=== PATIENT | female | born 1960 | race Caucasian/White ===

== ENCOUNTER 2016-09-15 10:09 | Inpatient (IN) | payer OTHER ==
[~2016-09-15] VITALS: Ht 157.5 cm; Wt 64.0 kg
[~2016-09-15 10:09] MED LIST: ASPI-535 PO; CARVEDILOL PO; METFORMIN PO; OMEPRAZOLE PO; PREM3 PO
[2016-09-15] MEDS ORDERED: morphine 2 MG INJ IV STA (11:34)
[2016-09-15] MEDS ORDERED: SOD CHLORIDE 0.9% 1,000 ML IV STA (11:34)
[2016-09-15] MEDS ORDERED: ONDANSETRON 4 MG INJ IV STA (11:34)
[2016-09-15] MEDS ORDERED: SOD CHLORIDE 0.9% 1,000 ML IV ONE ×2 (12:00→14:30)
[2016-09-15 12:05] LABS: ADD SCAN DIFF NO
[2016-09-15 12:07] LABS: BASOPHILS % 0.3 % (0.0-2.0); EOSINOPHILS # 0.1 10^3/ul (0.0-0.5); HEMATOCRIT 38.8 % (37.0-47.0); HEMOGLOBIN 13.2 g/dl (12.0-16.0); LYMPHOCYTES # 1.1 10^3/ul (0.8-2.9); LYMPHOCYTES % 12.7 % (15.0-51.0); MEAN CORPUSCULAR HEMOGLOBIN 28.1 pg (29.0-33.0); MEAN CORPUSCULAR VOLUME 82.6 fl (82.0-101.0); MEAN PLATELET VOLUME 10.2 fl (7.4-10.4); NEUTROPHIL # 6.7 10^3/ul (1.6-7.5); NEUTROPHILS % 74.6 % (39.0-77.0); PLATELET COUNT 315 10^3/UL (140-415); RED CELL DISTRIBUTION WIDTH 14.3 % (11.5-14.5); WHITE BLOOD COUNT 8.9 10^3/ul (4.8-10.8)
[2016-09-15 12:16] LABS: ADD UMIC YES; URINE BILIRUBIN (Dip) 2+ (NEGATIVE); URINE BLOOD (Dip) NEGATIVE (NEGATIVE); URINE COLOR DK. YELLOW (YELLOW); URINE GLUCOSE (Dip) NEGATIVE (NEGATIVE); URINE KETONES (Dip) NEGATIVE (NEGATIVE); URINE LEUKOCYTE ESTERASE (Dip) NEGATIVE (NEGATIVE); URINE NITRITE (Dip) NEGATIVE (NEGATIVE); URINE TOTAL PROTEIN (Dip) 1+ (NEGATIVE); URINE UROBILINOGEN (Dip) 0.2 E.U./dL (0.1-1.0)
[2016-09-15 12:23] LABS: ICTOTEST NEGATIVE (NEGATIVE)
[2016-09-15 12:24] LABS: BACTERIA,URINE MANY
[2016-09-15 12:27] LABS: ALBUMIN 4.8 g/dl (3.3-4.9); ALBUMIN/GLOBULIN RATIO 1.84; BILIRUBIN,INDIRECT 0.3 mg/dl (0-1.1); BILIRUBIN,TOTAL 0.3 mg/dl (0.2-1.3); CALCIUM 8.7 mg/dl (8.4-10.2); CREATININE 1.75 mg/dl (0.44-1.00); POTASSIUM 3.4 mmol/L (3.5-5.1); TOTAL PROTEIN 7.4 g/dl (6.1-8.1)
[2016-09-15] MEDS ORDERED: ONDANSETRON 4 MG INJ IV PRN (14:30)
[2016-09-15] MEDS ORDERED: CARV12.579 PO (14:30)
[2016-09-15] MEDS ORDERED: ACETAMINOPHEN 325 MG TAB PO PRN ×2 (14:30→16:00)
[2016-09-15] MEDS ORDERED: PRAV40TA76 PO (14:30)
[2016-09-15] MEDS ORDERED: EZET10TA3 PO (14:34)
[2016-09-15] MEDS ORDERED: METF500T3 PO (14:35)
[2016-09-15] MEDS ORDERED: OMEP20CA16 PO (14:36)
[2016-09-15] MEDS ORDERED: LOSA100T7 PO (14:36)
--- NOTE | 2016-09-15 15:45 | HP ---
Date/Time of Note Date/Time of Note DATE: 09/15/16 TIME: 15:38 Assessment/Plan VTE Prophylaxis VTE Prophylaxis Intervention: heparin, SCD's Assessment/Plan Assessment/Plan 56 yo F with pmhx HTN, DM, HL admitted for abd pain, diarrhea x 3 days and resultant AUDREY 2/2 decreased PO intake. Suspect etio of GI upset is viral gastro given sick contact at home #abd pain/diarrhea: GI tract rest, IVFs #AUDREY: suspect 2/2 decreased PO intake urine lytes/FENA hold ARB and metformin RON in AM if Cr not improved #DM2: accuchecks and SSI; hold metformin #transaminitis: suspect 2/2 viral syndrome. If not improved by AM following hydration, consider liver US and hepatitis serologies #HL: cont statin #HTN: cont bb, hold ARB #FEN: CLD, ADAT #prophx: SCDs and SQH dispo pending resolution of AUDREY and improvement of PO tolerence HPI/ROS Admit Date/Time Admit Date/Time Hx of Present Illness 56 yo F presents with 3 days of abd cramping, diarrhea. Reports her mother who lives with her has been having the same symptoms. Has been unable to tolerate much PO over this interval. Does not freely endorse blood stool, dark stool, CP , SOB ROS 10pROS neg except as per HPI PMH/Family/Social Past Medical History DM2, HTN, HL Past Surgical History Past Surgical Hx: noncontributory Family History Significant Family History: no pertinent family hx Social History lives in the community Smoking Status: Never smoker Exam/Review of Systems Vital Signs Vitals Vital Signs Date Time Temp Pulse Resp B/P Pulse Ox O2 Delivery O2 Flow Rate FiO2 09/15/16 13:42 97.9 79 20 92/52 98 Room Air Exam Exam nad, pleasant EOMI MMM rrr no mrg lungs clear abd soft, no rebound or guarding. pt repots mild discomfort in all quadrants no le edema no rashes responds to questions appropriately moves exts freely Labs Result Diagram: 09/15/16 1145 09/15/16 1145 NICO SILVA MD Sep 15, 2016 15:45
[2016-09-15] MEDS ORDERED: GLUCOSE GEL 15 GRAM TUBE BUCCAL PRN (16:00)
[2016-09-15] MEDS ORDERED: MAGNESIUM HYDROXIDE 30ML CUP PO PRN (16:00)
[2016-09-15] MEDS ORDERED: DEXTROSE 50% 50 ML SYRINGE IV PRN ×2 (16:00)
[2016-09-15] MEDS ORDERED: BISACODYL (EC) 5 MG TAB PO PRN (16:00)
[2016-09-15] MEDS ORDERED: GLUCOSE GEL 15 GRAM TUBE PO PRN ×2 (16:00)
[2016-09-15] MEDS ORDERED: DOCUSATE SODIUM 100 MG CAP PO PRN (16:00)
[2016-09-15] MEDS ORDERED: Discontinue Glyburide, Glipizide, and/or Glimepiride prior to starting Insulin XX ONE (16:00)
[2016-09-15] MEDS ORDERED: HYPOGLYCEMIA PROTOCOL when Glucose is <70 mg/dL or symptomatic <90 mg/dL. XX ONE (16:00)
[2016-09-15] MEDS ORDERED: NACL 0.9% 3 ML SYG IV SCH (16:00)
[2016-09-15] MEDS ORDERED: BISACODYL 10 MG SUPP PR PRN (16:00)
[2016-09-15] MEDS ORDERED: GLUCAGON 1 MG INJ IM PRN (16:00)
[2016-09-15] MEDS ORDERED: HYDROCODONE/APAP (5/325) TAB PO PRN (16:00)
[2016-09-15] MEDS ORDERED: POTASSIUM CHLORIDE (SR) 20 MEQ TAB PO STA (16:03)
--- NOTE | 2016-09-15 16:05 | ERA ---
ER Documentation Chief Complaint Date/Time DATE: 09/15/16 TIME: 15:59 Chief Complaint AP N/V/DX 4 DAYS HPI This 56-year-old female presents the emergency room for feeling tired, generalized weakness after having nausea vomiting and diarrhea for 4 days. She has had chills but no fevers. She has generalized crampy abdominal pain. She does have a history of diabetes as well. ROS All systems reviewed and are negative except as per history of present illness. Medications Home Meds Reported Medications Omeprazole* (Omeprazole*) 20 Mg Capsule.dr, 20 MG PO DAILY, #30 CAP 09/15/16 Ezetimibe* (Zetia*) 10 Mg Tablet, 10 MG PO HS, TAB 09/15/16 Pravastatin Sodium* (Pravastatin Sodium*) 40 Mg Tablet, 40 MG PO HS, TAB 09/15/16 Carvedilol* (Carvedilol*) 12.5 Mg Tablet, 12.5 MG PO BID, #60 TAB 09/15/16 Discontinued Reported Medications Losartan Potassium* (Losartan Potassium*) 100 Mg Tablet, 100 MG PO DAILY, TAB 09/15/16 Metformin Hcl* (Metformin Hcl* ER) 500 Mg Tab.sr.24h, 500 MG PO DAILY, #30 TAB 09/15/16 Aspirin Ec (Aspir 81) 81 Mg Tablet.dr, 81 MG PO DAILY, #30 TAB 07/25/15 [Carvedilol] No Conflict Check, PO 07/25/15 [Metformin] No Conflict Check, PO 07/25/15 [Omeprazole] No Conflict Check, PO 07/25/15 Discontinued Scripts Estrogens Conjugated* (Premarin*) 0.3 Mg Tablet, 0.3 MG PO DAILY for 5 Days, #5 TAB 0 Refills Prov:ELOY ORTEGA PA-C 08/28/15 Allergies Allergies: Coded Allergies: Penicillins (Verified Allergy, Unknown, 09/15/16) PMhx/Soc History of Surgery: No (UTERINE BIOPSIES X2, LAP MARIA, TONSILLECTOMY ) Anesthesia Reaction: No Hx Neurological Disorder: No Hx Respiratory Disorders: No Hx Cardiac Disorders: Yes (HTN, HIGH CHOL, HEART MURMER) Hx Psychiatric Problems: No Hx Miscellaneous Medical Probl: Yes (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 Head: Atraumatic Eyes: Normal Conjunctiva ENT: Normal External Ears, Nose and Mouth. Neck: Full range of motion..~ No meningismus. Resp: Clear to auscultation bilaterally Cardio: Regular rate and rhythm, no murmurs Abd: Soft, mild generalized abdominal pain without guarding or rebound, non distended. Normal bowel sounds Skin: No petechiae or rashes Back: No midline or flank tenderness Ext: No cyanosis, or edema Neur: Awake and alert and oriented 3, no focal deficits Psych: Normal Mood and Affect Result Diagram: 09/15/16 1145 09/15/16 1145 Results 24 hrs Laboratory Tests Test 09/15/16 11:45 White Blood Count 8.910^3/ul Red Blood Count 4.7010^6/ul Hemoglobin 13.2g/dl Hematocrit 38.8% Mean Corpuscular Volume 82.6fl Mean Corpuscular Hemoglobin 28.1pg Mean Corpuscular Hemoglobin Concent 34.0g/dl Red Cell Distribution Width 14.3% Platelet Count 19798^3/UL Mean Platelet Volume 10.2fl Neutrophils % 74.6% Lymphocytes % 12.7% Monocytes % 11.0% Eosinophils % 1.0% Basophils % 0.3% Nucleated Red Blood Cells % 0.0/100WBC Neutrophils # 6.710^3/ul Lymphocytes # 1.110^3/ul Monocytes # 1.010^3/ul Eosinophils # 0.110^3/ul Basophils # 0.010^3/ul Nucleated Red Blood Cells # 0.010^3/ul Urine Color DK. YELLOW Urine Clarity CLEAR Urine pH 5.5 Urine Specific [place] >=1.030 Urine Ketones NEGATIVE Urine Nitrite NEGATIVE Urine Bilirubin 2+ Urine Ictotest NEGATIVE Urine Urobilinogen 0.2 E.U./dL Urine Leukocyte Esterase NEGATIVE Urine Microscopic RBC 5-10/HPF Urine Microscopic WBC 10-25/HPF Urine Epithelial Cells MODERATE Urine Bacteria MANY Urine Coarse Granular Casts MODERATE Urine Hemoglobin NEGATIVE Urine Glucose NEGATIVE% Urine Total Protein 1+ Sodium Level 141mmol/L Potassium Level 3.4mmol/L Chloride Level 105mmol/L Carbon Dioxide Level 24mmol/L Anion Gap 15 Blood Urea Nitrogen 29mg/dl Creatinine 1.75mg/dl Glucose Level 111mg/dl Lactic Acid Level 1.0mmol/L Calcium Level 8.7mg/dl Total Bilirubin 0.3mg/dl Direct Bilirubin 0.00mg/dl Indirect Bilirubin 0.3mg/dl Aspartate Amino Transf (AST/SGOT) 97IU/L Alanine Aminotransferase (ALT/SGPT) 131IU/L Alkaline Phosphatase 133IU/L Total Protein 7.4g/dl Albumin 4.8g/dl Globulin 2.60g/dl Albumin/Globulin Ratio 1.84 Lipase 133U/L Current Medications Medications (Trade) Dose Ordered Sig/Francisco Javier Route PRN Reason Start Time Stop Time Status Last Admin Dose Admin Sodium Chloride (NS) 1,000 ml @ 1,000 mls/hr Q1H STAT IV 09/15/16 11:34 09/15/16 12:33 DC 09/15/16 11:47 Morphine Sulfate (morphine) 2 mg ONCE STAT IV 09/15/16 11:34 09/15/16 11:38 DC 09/15/16 11:47 Ondansetron HCl 4 mg 4 mg ONCE STAT IV 09/15/16 11:34 09/15/16 11:38 DC 09/15/16 11:47 Sodium Chloride (NS) 1,000 ml @ 1,000 mls/hr Q1H ONCE IV 09/15/16 12:00 09/15/16 12:59 DC 09/15/16 12:27 Ondansetron HCl (Zofran Inj) 4 mg BRIDGE ORDER PRN IV NAUSEA AND/OR VOMITING 09/15/16 14:30 09/16/16 14:29 Acetaminophen 650 mg 650 mg ER BRIDGE PRN PO MILD PAIN/FEVER 09/15/16 14:30 09/16/16 14:29 Sodium Chloride (NS) 1,000 ml @ 1,000 mls/hr Q1H ONCE IV 09/15/16 14:30 09/15/16 15:29 DC 09/15/16 15:07 Carvedilol (Coreg) 12.5 mg BID PO 09/15/16 21:00 EZETIMIBE (Zetia) 10 mg HS PO 09/15/16 21:00 Pantoprazole (Protonix Tab) 40 mg DAILY@06 PO 09/16/16 06:00 Atorvastatin Calcium 10 mg 10 mg DAILY@21 PO 09/15/16 21:00 Sodium Chloride (NS) 1,000 ml @ 125 mls/hr Q8H IV 09/15/16 15:40 IV Flush (NS 3 ml) 3 ml PER PROTOCOL IV 09/15/16 16:00 Acetaminophen (Tylenol Tab) 650 mg Q6H PRN PO PAIN LEVEL 1-3 OR FEVER 09/15/16 16:00 Acetaminophen/ Hydrocodone Bitart ([place] (5/325)) 1 tab Q6H PRN PO MODERATE PAIN LEVEL 4-6 09/15/16 16:00 Docusate Sodium (Colace) 100 mg Q12H PRN PO CONSTIPATION 09/15/16 16:00 Magnesium Hydroxide (Milk Of Mag) 30 ml DAILY PRN PO CONSTIPATION 09/15/16 16:00 Bisacodyl (Dulcolax) 5 mg DAILY PRN PO CONSTIPATION 09/15/16 16:00 Bisacodyl (Dulcolax Supp) 10 mg DAILY PRN IN CONSTIPATION 09/15/16 16:00 Heparin Sodium (Porcine) (Heparin (5000 Units/0.5 ml)) 5,000 unit Q8 SC 09/15/16 22:00 Insulin Aspart (Novolog Insulin Pen) NOVOLOG *MILD* ALGORITHM WITH MEALS BEDTIME SC 09/15/16 18:00 UNV Miscellaneous Information (* Miscellaneous Pharmacy Order) HYPOGLYCEMIA PROTOCOL w... ONCE ONCE XX 09/15/16 16:00 09/15/16 16:01 Miscellaneous Information (* Miscellaneous Pharmacy Order) Discontinue Glyburide, Glipizide,... ONCE ONCE XX 09/15/16 16:00 09/15/16 16:01 Miscellaneous Information (* Miscellaneous Pharmacy Order) Discontinue all previ... ONCE ONCE XX 09/15/16 16:00 09/15/16 16:01 Miscellaneous Information 1 ea NOTE XX 09/15/16 16:00 Glucose (Glutose) 15 gm Q15M PRN PO DECREASED GLUCOSE 6/3/17 16:00 Glucose (Glutose) 22.5 gm Q15M PRN PO DECREASED GLUCOSE 09/15/16 16:00 Dextrose (D50w Syringe) 25 ml Q15M PRN IV DECREASED GLUCOSE 617 16:00 Dextrose (D50w Syringe) 50 ml Q15M PRN IV DECREASED GLUCOSE 6 16:00 Glucagon (Glucagen) 1 mg Q15M PRN IM DECREASED GLUCOSE 6 16:00 Glucose (Glutose) 15 gm Q15M PRN BUCCAL DECREASED GLUCOSE 6 16:00 Procedures/MDM 56-year-old female with dehydration, hypotension, acute kidney injury after what is likely a viral gastroenteritis for the last 4 days. She was hydrated with 2 L of normal saline in the emergency room and still remained somewhat hypotensive. EKG is nonischemic and I doubt a cardiac origin of this is the patient is volume depleted secondary to her vomiting and diarrhea. Is given morphine which helped her pain as well as Zofran which resolved her nausea. She still feels weak and as she is diabetic I believe that her multiple conditions requiring continuing fluid resuscitation warrant admission. Pain pattern is consistent with gastroenteritis and I do not believe the patient would benefit from a CAT scan at this time spoke with Dr. Ivy who will be admitting. EKG interpretation: Normal sinus rhythm rate of 67, normal axis, normal intervals, no ST or T-wave changes concerning for acute ischemia. Nonspecific ST-T wave abnormality monitor and storage bin tender interpretation: Normal sinus rhythm without arrhythmia Departure Diagnosis: Primary Impression: Gastroenteritis Additional Impressions: Dehydration Hypotension Acute kidney injury Condition: Serious AMAIRANILORENAMISGUNNAR BOYD Sep 15, 2016 16:05
[2016-09-15] MEDS ORDERED: DIPHENOXYLATE/ATROPINE TAB PO ONE (16:30)
[2016-09-15] MEDS ORDERED: morphine 2 MG INJ IV ONE (16:30)
[2016-09-15] MEDS: INSULIN ASPART [NOVOLOG] 3 ML PEN SC SCH ×2 (18:00→21:00)
[2016-09-15] MEDS: SOD CHLORIDE 0.9% 1,000 ML IV SCH ×2 (18:29→23:30)
[2016-09-15] MEDS ORDERED: ATORVASTATIN 10 MG TAB PO SCH (21:00)
[2016-09-15] MEDS ORDERED: EZETIMIBE 10 MG TAB PO SCH (21:00)
[2016-09-15 21:14] VITALS: Ht 157.5 cm; Wt 64.0 kg
[2016-09-15 21:18] VITALS: BP 134/77; PULSE 83; RESP 18
[2016-09-15 21:29] VITALS: TEMP 98.2
[2016-09-15] MEDS: HEPARIN 5,000 UNIT/0.5 ML VIAL SC SCH (21:55)
[2016-09-16] MEDS ORDERED: ACCUCHECK AT 2AM (Patients on SS coverage) XX SCH (02:00)
[2016-09-16] MEDS: HEPARIN 5,000 UNIT/0.5 ML VIAL SC SCH ×2 (05:58→14:00)
[2016-09-16] MEDS ORDERED: PANTOPRAZOLE (EC) 40 MG TAB PO SCH (06:00)
[2016-09-16] MEDS: SOD CHLORIDE 0.9% 1,000 ML IV SCH (07:40)
[2016-09-16] MEDS: INSULIN ASPART [NOVOLOG] 3 ML PEN SC SCH ×2 (07:50→11:40)
[2016-09-16 08:19] VITALS: BP 111/62; RESP 17
--- NOTE | 2016-09-16 09:21 | PN ---
Date/Time of Note Date/Time of Note DATE: 09/16/16 TIME: 09:18 Assessment/Plan VTE Prophylaxis VTE Prophylaxis Intervention: other Lines/Catheters IV Catheter Type (from Rust): Peripheral IV Assessment/Plan Problems: (1) Acute kidney injury Status: Acute Comment: The blood draw for chemistry this morning was not done by the lab. Awaiting that to be drawn so that we can make decisions about her. I suspect this has resolved (2) Gastroenteritis Status: Acute Comment: Significantly improved. Probable later discharged today versus the morning. 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 Constitutional: no complaints (Denies fevers chills or sweats) Respiratory: no complaints (No wheezing no shortness of breath) Cardiovascular: no complaints (No chest pain) Gastrointestinal: other (Denies nausea or vomiting but she reports her stomach does feel little bit stirred up after eating) Genitourinary: no complaints Exam/Review of Systems Vital Signs Vitals Vital Signs Date Time Temp Pulse Resp B/P Pulse Ox O2 Delivery O2 Flow Rate FiO2 09/16/16 08:19 98.0 66 17 111/62 96 09/15/16 21:18 Room Air Intake and Output 09/15/16 09/15/16 09/16/16 15:00 23:00 07:00 Intake Total 2000 ml 1000 ml 2150 ml Output Total 200 ml 900 ml Balance 2000 ml 800 ml 1250 ml Exam Constitutional: alert, oriented Neck: non-tender, supple Respiratory: clear to auscultation, normal air movement Cardiovascular: nl pulses, regular rate and rhythm Gastrointestinal: bowel sounds (Bowel sounds are active and possibly hyperdynamic), nl liver, spleen, non-tender, soft Results Result Diagram: 09/15/16 1145 09/15/16 1145 Results 24 hrs Laboratory Tests Test 09/15/16 11:45 09/15/16 18:37 09/15/16 21:51 09/16/16 08:53 White Blood Count 8.9 Red Blood Count 4.70 Hemoglobin 13.2 Hematocrit 38.8 Mean Corpuscular Volume 82.6 Mean Corpuscular Hemoglobin 28.1 L Mean Corpuscular Hemoglobin Concent 34.0 Red Cell Distribution Width 14.3 Platelet Count 315 Mean Platelet Volume 10.2 Neutrophils % 74.6 Lymphocytes % 12.7 L Monocytes % 11.0 Eosinophils % 1.0 Basophils % 0.3 Nucleated Red Blood Cells % 0.0 Neutrophils # 6.7 Lymphocytes # 1.1 Monocytes # 1.0 H Eosinophils # 0.1 Basophils # 0.0 Nucleated Red Blood Cells # 0.0 Urine Color DK. YELLOW Urine Clarity CLEAR Urine pH 5.5 Urine Specific [place] >=1.030 H Urine Ketones NEGATIVE Urine Nitrite NEGATIVE Urine Bilirubin 2+ H Urine Ictotest NEGATIVE Urine Urobilinogen 0.2 E.U./dL Urine Leukocyte Esterase NEGATIVE Urine Microscopic RBC 5-10 Urine Microscopic WBC 10-25 Urine Epithelial Cells MODERATE Urine Bacteria MANY Urine Coarse Granular Casts MODERATE Urine Hemoglobin NEGATIVE Urine Random Creatinine > 605.00 H Urine Random Sodium 17 L Urine Glucose NEGATIVE Urine Total Protein 1+ H Sodium Level 141 Potassium Level 3.4 L Chloride Level 105 Carbon Dioxide Level 24 Anion Gap 15 Blood Urea Nitrogen 29 H Creatinine 1.75 H Glucose Level 111 Hemoglobin A1c 6.1 H Lactic Acid Level 1.0 Calcium Level 8.7 Total Bilirubin 0.3 Direct Bilirubin 0.00 Indirect Bilirubin 0.3 Aspartate Amino Transf (AST/SGOT) 97 H Alanine Aminotransferase (ALT/SGPT) 131 H Alkaline Phosphatase 133 H Total Protein 7.4 Albumin 4.8 Globulin 2.60 Albumin/Globulin Ratio 1.84 Lipase 133 Bedside Glucose 98 97 94 Medications Medications Current Medications Carvedilol (Coreg) 12.5 mg BID PO Last administered on 09/16/16 08:57; Admin Dose 12.5 MG; Start 09/15/16 at 21:00 EZETIMIBE (Zetia) 10 mg HS PO ; Start 09/15/16 at 21:00 Pantoprazole (Protonix Tab) 40 mg DAILY@06 PO Last administered on 09/16/16 05: 55; Admin Dose 40 MG; Start 09/16/16 at 06:00 Atorvastatin Calcium 10 mg 10 mg DAILY@21 PO Last administered on 09/15/16 21: 53; Admin Dose 10 MG; Start 09/15/16 at 21:00 Sodium Chloride (NS) 1,000 ml @ 125 mls/hr Q8H IV Last administered on 23:30; Admin Dose 125 MLS/HR; Start 09/15/16 at 15:40 Acetaminophen (Tylenol Tab) 650 mg Q6H PRN PO PAIN LEVEL 1-3 OR FEVER; Start at 16:00 Acetaminophen/ Hydrocodone Bitart ([place] (5/325)) 1 tab Q6H PRN PO MODERATE PAIN LEVEL 4-6; Start 09/15/16 at 16:00 Docusate Sodium (Colace) 100 mg Q12H PRN PO CONSTIPATION; Start 09/15/16 at 16: 00 Magnesium Hydroxide (Milk Of Mag) 30 ml DAILY PRN PO CONSTIPATION; Start at 16:00 Bisacodyl (Dulcolax) 5 mg DAILY PRN PO CONSTIPATION; Start 09/15/16 at 16:00 Bisacodyl (Dulcolax Supp) 10 mg DAILY PRN ND CONSTIPATION; Start 09/15/16 at 16: 00 Heparin Sodium (Porcine) (Heparin (5000 Units/0.5 ml)) 5,000 unit Q8 SC Last administered on 09/16/16 05:58; Admin Dose 5,000 UNIT; Start 09/15/16 at 22:00 Miscellaneous Information 1 ea NOTE XX ; Start 09/15/16 at 16:00 Glucose (Glutose) 15 gm Q15M PRN PO DECREASED GLUCOSE; Start 09/15/16 at 16:00 Glucose (Glutose) 22.5 gm Q15M PRN PO DECREASED GLUCOSE; Start 09/15/16 at 16:00 Dextrose (D50w Syringe) 25 ml Q15M PRN IV DECREASED GLUCOSE; Start 09/15/16 at 16:00 Dextrose (D50w Syringe) 50 ml Q15M PRN IV DECREASED GLUCOSE; Start 09/15/16 at 16:00 Glucagon (Glucagen) 1 mg Q15M PRN IM DECREASED GLUCOSE; Start 09/15/16 at 16:00 Glucose (Glutose) 15 gm Q15M PRN BUCCAL DECREASED GLUCOSE; Start 09/15/16 at 16: 00 Diagnostic Test (Pha) (Accu-Chek) 1 ea 02 XX ; Start 09/16/16 at 02:00 MIS PATEL MD Sep 16, 2016 09:21
[2016-09-16 10:20] LABS: ALBUMIN 3.7 g/dl (3.3-4.9); ALBUMIN/GLOBULIN RATIO 1.76; BILIRUBIN,INDIRECT 0.3 mg/dl (0-1.1); BILIRUBIN,TOTAL 0.3 mg/dl (0.2-1.3); CALCIUM 7.9 mg/dl (8.4-10.2); CREATININE 0.55 mg/dl (0.44-1.00); POTASSIUM 3.4 mmol/L (3.5-5.1); TOTAL PROTEIN 5.8 g/dl (6.1-8.1)
--- NOTE | 2016-09-16 12:09 | PDOCDIS ---
Discharge Instructions DIAGNOSIS Discharge Diagnosis: Acute gastroenteritis CONDITION Patient Condition: Fair HOME CARE INSTRUCTIONS: Diet Instructions: RegularSpecial Diet: Clear liquid diet ACTIVITY: Activity Restrictions: No Restrictions FOLLOW UP/APPOINTMENTS Appointments Follow-up with primary care doctor in 1 week SCHOOL/WORK RELEASE May return to School/Work with: No Restrictions MIS PATEL MD Sep 16, 2016 12:09
--- NOTE | 2016-09-16 12:12 | DS ---
Date/Time of Note Date/Time of Note DATE: 09/16/16 TIME: 12:10 Discharge Summary Admission/Discharge Info Admit Date/Time Sep 15, 2016 at 14:21 Discharge Date/Time 09/16/2016 Final Diagnosis Acute gastroenteritis with dehydration; acute kidney injury/resolved Patient Condition: Good Hx of Present Illness 56 yo F presents with 3 days of abd cramping, diarrhea. Reports her mother who lives with her has been having the same symptoms. Has been unable to tolerate much PO over this interval. Does not freely endorse blood stool, dark stool, CP , SOB Hospital Course Patient was treated with antibiotic therapy and rehydration with rapid resolution of symptoms to near normal. She is now stable. She has no known communicable diseases she is not hazard to herself or others her rehabilitation potential is excellent and she is competent for medical decision-making. She is stable for discharge Home Meds Reported Medications Omeprazole* (Omeprazole*) 20 Mg Capsule.dr, 20 MG PO DAILY, #30 CAP 09/15/16 Ezetimibe* (Zetia*) 10 Mg Tablet, 10 MG PO HS, TAB 09/15/16 Pravastatin Sodium* (Pravastatin Sodium*) 40 Mg Tablet, 40 MG PO HS, TAB 09/15/16 Carvedilol* (Carvedilol*) 12.5 Mg Tablet, 12.5 MG PO BID, #60 TAB 09/15/16 Discontinued Reported Medications Losartan Potassium* (Losartan Potassium*) 100 Mg Tablet, 100 MG PO DAILY, TAB 09/15/16 Metformin Hcl* (Metformin Hcl* ER) 500 Mg Tab.sr.24h, 500 MG PO DAILY, #30 TAB 09/15/16 Aspirin Ec (Aspir 81) 81 Mg Tablet.dr, 81 MG PO DAILY, #30 TAB 07/25/15 [Carvedilol] No Conflict Check, PO 07/25/15 [Metformin] No Conflict Check, PO 07/25/15 [Omeprazole] No Conflict Check, PO 07/25/15 Discontinued Scripts Estrogens Conjugated* (Premarin*) 0.3 Mg Tablet, 0.3 MG PO DAILY for 5 Days, #5 TAB 0 Refills Prov:ELOY ORTEGA PA-C 08/28/15 Primary Care Provider Amanda Weaver Time spent on discharge: < 30 minutes Pending Labs Laboratory Tests Test 09/15/16 18:37 09/15/16 21:51 09/16/16 08:53 09/16/16 09:35 Bedside Glucose 98mg/dL (70-220) 97mg/dL (70-220) 94mg/dL (70-220) Sodium Level 140mmol/L (135-144) Potassium Level 3.4mmol/L (3.5-5.1) Chloride Level 112mmol/L (97-110) Carbon Dioxide Level 23mmol/L (21-31) Anion Gap 8 (8-16) Blood Urea Nitrogen 11mg/dl (7-20) Creatinine 0.55mg/dl (0.44-1.00) Glucose Level 107mg/dl (70-220) Calcium Level 7.9mg/dl (8.4-10.2) Total Bilirubin 0.3mg/dl (0.2-1.3) Direct Bilirubin 0.00mg/dl (0.00-0.20) Indirect Bilirubin 0.3mg/dl (0-1.1) Aspartate Amino Transf (AST/SGOT) 100IU/L (15-46) Alanine Aminotransferase (ALT/SGPT) 168IU/L (13-69) Alkaline Phosphatase 114IU/L (42-121) Total Protein 5.8g/dl (6.1-8.1) Albumin 3.7g/dl (3.3-4.9) Globulin 2.10g/dl (1.3-3.2) Albumin/Globulin Ratio 1.76 MIS PATEL MD Sep 16, 2016 12:12
== END 2016-09-16 15:30 | disposition home or self-care (01) | DRG 684 ==
LOC: E/R 10:09 → MS1 14:21
PROVIDERS: ADMIT Family Medicine; ATTEND Family Medicine
DX: N17.9 Acute kidney failure, unspecified (principal); I95.9 Hypotension, unspecified; I10 Essential (primary) hypertension; E11.9 Type 2 diabetes mellitus without complications; E78.5 Hyperlipidemia, unspecified; K52.9 Noninfective gastroenteritis and colitis, unspecified; A08.4 Viral intestinal infection, unspecified; Z79.4 Long term (current) use of insulin
CPT/HCPCS: 36415; 80053; 81001; 82962; 83036; 83605; 83690; 84155; 84300; 85025; 93005; 96361; 96374; 96375; 96376; J1644; J2270; J2405; J7030

== ENCOUNTER 2018-05-04 14:07 | Emergency (ER) | payer OTHER ==
[~2018-05-04] VITALS: Ht 157.5 cm; Wt 64.8 kg
[~2018-05-04 14:07] MED LIST changes: -ASPI-535 PO; +CARV12.579 PO; -CARVEDILOL PO; +EZET10TA31 PO; -METFORMIN PO; +OMEP20CA16 PO; -OMEPRAZOLE PO; +PRAV40TA76 PO; -PREM3 PO
[2018-05-04 14:23] VITALS: PULSE 71; Ht 157.5 cm; Wt 64.8 kg
--- NOTE | 2018-05-04 15:03 | ERD ---
ER Documentation Chief Complaint Chief Complaint VAGINAL BLEEDING X10 DAYS HPI 57-year-old female with LMP 2 years ago, , presents to the emergency department, complaining of 10 days with painless vaginal bleeding, using approximately 5 pads per day. She denies abdominal pain, no dizziness or weakness. She has an appointment with her primary doctor next Saturday. She had a similar episode 2 years ago, at that time she had an endometrial biopsy, according to the patient everything was normal. ROS All systems reviewed and are negative except as per history of present illness. Medications Home Meds Reported Medications Omeprazole* (Omeprazole*) 20 Mg Capsule.dr, 20 MG PO DAILY, #30 CAP 09/15/16 Ezetimibe* (Zetia*) 10 Mg Tablet, 10 MG PO HS, TAB 09/15/16 Pravastatin Sodium* (Pravastatin Sodium*) 40 Mg Tablet, 40 MG PO HS, TAB 09/15/16 Carvedilol* (Carvedilol*) 12.5 Mg Tablet, 12.5 MG PO BID, #60 TAB 09/15/16 Allergies Allergies: Coded Allergies: Penicillins (Verified Allergy, Unknown, 09/15/16) PMhx/Soc History of Surgery: No (UTERINE BIOPSIES X2, LAP MARIA, TONSILLECTOMY ) Anesthesia Reaction: No Hx Neurological Disorder: No Hx Respiratory Disorders: No Hx Cardiac Disorders: Yes (HTN, HIGH CHOL, HEART MURMER) Hx Psychiatric Problems: No Hx Miscellaneous Medical Probl: Yes (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 Neck: Full range of motion. No meningismus. Resp: Clear to auscultation bilaterally Cardio: Regular rate and rhythm, no murmurs Abd: Soft, non tender, non distended. Normal bowel sounds Skin: No petechiae or rashes Back: No midline or flank tenderness Ext: No cyanosis, or edema Neur: Awake and alert Psych: Normal Mood and Affect Result Diagram: 05/04/18 1514 05/04/18 1514 Results 24 hrs Laboratory Tests Test 05/04/18 15:14 05/04/18 15:17 05/04/18 15:19 White Blood Count 9.3 10^3/ul Red Blood Count 4.69 10^6/ul Hemoglobin 12.6 g/dl Hematocrit 38.7 % Mean Corpuscular Volume 82.5 fl Mean Corpuscular Hemoglobin 26.9 pg Mean Corpuscular 32.6 g/dl Hemoglobin Concent Red Cell Distribution Width 13.5 % Platelet Count 419 10^3/UL Mean Platelet Volume 10.0 fl Immature Granulocytes % 0.200 % Neutrophils % 59.7 % Lymphocytes % 30.5 % Monocytes % 7.7 % Eosinophils % 1.5 % Basophils % 0.4 % Nucleated Red Blood Cells % 0.0 /100WBC Immature Granulocytes # 0.020 10^3/ul Neutrophils # 5.5 10^3/ul Lymphocytes # 2.8 10^3/ul Monocytes # 0.7 10^3/ul Eosinophils # 0.1 10^3/ul Basophils # 0.0 10^3/ul Nucleated Red Blood Cells # 0.0 10^3/ul Sodium Level 142 mmol/L Potassium Level 3.6 mmol/L Chloride Level 104 mmol/L Carbon Dioxide Level 27 mmol/L Anion Gap 11 Blood Urea Nitrogen 19 mg/dl Creatinine 0.52 mg/dl Est Glomerular Filtrat Rate mL/min > 60 mL/min Glucose Level 100 mg/dl Calcium Level 9.4 mg/dl Bedside Urine pH (LAB) 6.0 Bedside Urine Protein (LAB) 2+ Bedside Urine Glucose (UA) Negative Bedside Urine Ketones (LAB) Negative Bedside Urine Blood 3+ Bedside Urine Nitrite (LAB) Negative Bedside Urine Leukocyte Esterase Negative (L POC Beta HCG, Qualitative NEGATIVE DIAGNOSTIC IMAGING REPORT Patient: MAJO RIVAS : 1960 Age: 57 Sex: F MR #: [id number] DOS: 05/04/18 1500 Ordering MD: SHAHRAM MCKEON MD Location: [facility] Room/Bed: PROCEDURE: US Pelvis. CLINICAL INDICATION: Vaginal bleeding. TECHNIQUE: Sonographic evaluation of the pelvis was performed utilizing both transabdominal and transvaginal technique.Curved array transabdominal transducer technique as well as a high frequency endovaginal probe was utilized. Images were reviewed on the high-resolution PACS workstation. COMPARISON: US PELVIS 08/28/2015 FINDINGS: The uterus is heterogeneous and measures 8.4 x 5.0 x 6.1 cm. There is a 1.5 cm fibroid seen at the anterior wall of the uterus. The endometrium is thickened measuring 18.1 mm. The right ovary measures 1.6 ml in volume. The left ovary measures 1.3 ml in volume. The ovaries are symmetric in size, echogenicity, flow, and morphology. Multiple Nabothian cysts are seen in the cervix.. There are no adnexal masses. There is no significant free fluid in the pelvis. No other incidental abnormality is identified. IMPRESSION: 1.8 cm anterior uterine fibroid. Thickened endometrium measuring 1.8 cm. No adnexal masses or free fluid in the pelvis. RPTAT: QQ .Blaise Bradley MD, MD Date Time Electronically viewed and signed by .Blaise Bradley MD, on 05/04/2018 15:43 .L/ CC: SHAHRAM MCKEON MD [phone] Procedures/MDM Vital signs stable, Physical exam unremarkable, abdomen soft, nontender. Patient hemodynamically stable. Differential diagnosis include but not limited to: , ovarian cyst, fibroids, endometriosis, malignancy, dysfunctional bleeding, hematologic condition. Low suspicion for PID, no signs of hypovolemic shock. Physical examination and clinical presentation consistent most likely with postmenopausal bleeding with thickened endometrium During the ED course the patient remained stable, no new complaints. Results and clinical impression discussed with patient who agrees with manag ement. The patient is stable to be treated outpatient and will be discharged home with follow-up with her primary doctor during the next 48 hours. If symptoms persist, worsen or new symptoms develop, then patient should return to the ED immediately. Instructions explained and given directly by me to the patient with acknowledgment and demonstrated understanding. Disclaimer: Inadvertent spelling and grammatical errors are likely due to EHR/dictation software use and do not reflect on the overall quality of patient care. Also, please note that the electronic time recorded on this note does not necessarily reflect the actual time of the patient encounter. Departure Diagnosis: Primary Impression: Post-menopausal bleeding Additional Impression: Endometrial thickening on ultrasound Condition: Stable Additional Instructions: Muchas sofiya por [facility] para louis servicio. Esperamos que en louis visita a la clinton de emergencia louis problema medico haya sido solucionado y que se sienta mucho mejor. Para estar seguros que louis mejoria sigue en proceso, le pedimos el favor de hacer coy roger de seguimiento medico con louis doctor primario en los proximos 2-4 johnson. Lleve con usted estos documentos y las medicinas recetadas. Si yoli sintomas empeoran, NO SE ESPERE, por favor regrese a clinton de emergencia INMEDIATAMENTE. En catrachito que usted no tenga un mdico de atencin primaria: Llame al mdico o clnica comunitaria de referencia que aparece abajo jennifer las horas de consultorio para hacer coy roger para que le vean. CLINICAS: [facility] [id number] [facility] [id number] [facility] [phone] [facility] [id number] [facility] [phone] [id number] [facility]. [phone] MD May 04, 2018 15:02
[2018-05-04] MEDS ORDERED: ACET325T33 PO (16:11)
[2018-05-04] MEDS ORDERED: NYST15CR36 TOP (16:21)
[2018-05-04 16:39] VITALS: BP 146/73; RESP 18
== END 2018-05-04 16:41 | disposition home or self-care (01) ==
LOC: FTE 14:07
DX: N95.0 Postmenopausal bleeding (principal); E11.9 Type 2 diabetes mellitus without complications; I10 Essential (primary) hypertension; R93.89 Abnormal findings on diagnostic imaging of other specified body structures
CPT/HCPCS: 76830; 76856; 80048; 81003; 81025; 85025; Z7502